=== PATIENT | male | born 1965 | race Caucasian/White ===

== ENCOUNTER 2020-10-23 19:00 | Observation (INO) | payer OTHER ==
[~2020-10-23] VITALS: Ht 180.3 cm; Wt 88.4 kg
--- NOTE | 2020-10-23 19:15 | NUR ---
PT WITH 20G IV THAT WAS PLACED PRIOR TO ARRIVAL. SITE DRSG CLEAN DRY AND INTACT. FLUSHES EASILY WITH GOOD BLOOD RETURN.
--- NOTE | 2020-10-23 19:15 | NUR ---
PT MOVED TO ROOM 9 FOR TRIAGE BY EMS.
[2020-10-23 19:52] LABS: HEMATOCRIT 37.4 % (39.0-50.0); HEMOGLOBIN 12.8 g/dl (14.0-18.0); IMMATURE GRANULOCYTES 0.2 % (0.0-5.0); MEAN CELL VOLUME 89.5 fL CALC (80.0-100.0); MEAN CORPUSCULAR HGB 30.6 pG CALC (26.0-32.0); MEAN CORPUSCULAR HGB CONC 34.2 g/dL CAL (32.0-36.0); NEUT# 4.48 thou/uL (1.82-7.42); RED BLOOD COUNT 4.18 mill/uL (4.70-6.10); RED CELL DISTRI WIDTH 12.3 % (11.5-15.5)
[2020-10-23 20:07] LABS: ALBUMIN 3.3 g/dL (3.2-5.0); ALKALINE PHOSPHATASE 43 u/l (38-126); ANION GAP 11 (6-22 (CALC)); BILIRUBIN, TOTAL 0.3 mg/dL (0.0-1.4); BUN 15 mg/dL (9-20); BUN/CREATININE RATIO 18 (12-20 (CALC)); CARBON DIOXIDE 25 mmol/l (22-30); CHLORIDE 107 mmol/l (95-108); CREATININE 0.9 mg/dL (0.7-1.3); GFR > 60 ML/MIN (>=60 (CALC)); GFR FOR AFR.AMER. > 60 ML/MIN (>=60 (CALC)); POTASSIUM 3.7 mmol/l (3.5-5.1); SGOT/AST 16 u/l (17-59); SODIUM 138 mmol/l (137-146); TOTAL PROTEIN 5.9 g/dL (6.3-8.2)
[2020-10-23 20:18] LABS: C-REACTIVE PROTEIN 18.1 mg/dL (0-0.9)
--- NOTE | 2020-10-23 21:01 | NUR ---
PATIENT AGRESS WITH PLAN FOR ADMISSION. OFFERS X2 AT BEDSIDE - OFFICER SAMANTHA EDWRADS OFFICER RAVIN
--- NOTE | 2020-10-23 21:20 | NUR ---
SGT. ALICIA AT BEDSIDE REMOVED FLEX CUFF PER REQUEST FOR SPLINT APPLICATION TO [facility].
--- NOTE | 2020-10-23 22:26 | NUR ---
REPORT GIVEN TO RAFAT Quiles RN - ERA CUFFED, SHACKLES ON FEET. OFFICERS X2 ACCOMPANYING PATIENT TO ROOM 277 WITH NURSE
--- NOTE | 2020-10-23 23:02 | NUR ---
PATIENT LEAVING DEPARTMENT VIA WHEELCHAIR ACCOMPANIED BY OFFICERS AND LELO DIGITAL MEASUREMENT ADVISOR.
[2020-10-23 23:05] VITALS: BP 122/82
--- NOTE | 2020-10-24 | NUR ---
PT MEDICATED FOR PAIN.
--- NOTE | 2020-10-24 01:50 | NUR ---
PT GIVEN TV DINNER AND BEVERAGE. CHANGED SOILED DRESSING FROM A SKINNED ABRASION ON RIGHT HAND.
--- NOTE | 2020-10-24 01:50 | NUR ---
PT RECEIVED FROM ED TO ROOM 277. ARRIVES VIA WC ACCOMPANIED BY LELO MADRID. PT AMBULATORY TO BED. GAIT STEADY. PT DENIES PAIN AT THIS TIME. ORIENTED TO UNIT, ROOM, CALL VERA, LIGHTS, TV. ICE WATER PROVIDED. PT FROM [facility] WITH 2 GUARDS PRESENT. PT SHACKLED TO THE BED . ALL SHACKLED LIMBS HAVE BEEN VERIFIED FOR PROPER CIRCULATION. CALL VERA WITHIN REACH. AGREES TO CALL PRN.
[2020-10-24 04:00] VITALS: BP 120/71
--- NOTE | 2020-10-24 04:23 | NUR ---
PT RESTING IN BED, WITH 2 GUARDS AT BEDSIDE. SHACKLED TO THE BED. VERIFIED CIRCULATION. NO SIGNS OF DISTRESS NOTED, RESP EVEN AND UNLABORED. PT VOICES NO NEEDS OR COMPLAINTS AT THIS TIME. CALL LIGHT IN REACH, CONTINUE TO MONITOR.
[2020-10-24 05:08] LABS: ANION GAP 9 (6-22 (CALC)); BUN 14 mg/dL (9-20); BUN/CREATININE RATIO 17 (12-20 (CALC)); CARBON DIOXIDE 26 mmol/l (22-30); CHLORIDE 106 mmol/l (95-108); CREATININE 0.8 mg/dL (0.7-1.3); GFR > 60 ML/MIN (>=60 (CALC)); GFR FOR AFR.AMER. > 60 ML/MIN (>=60 (CALC)); HEMATOCRIT 35.5 % (39.0-50.0); HEMOGLOBIN 12.3 g/dl (14.0-18.0); MEAN CELL VOLUME 89.9 fL CALC (80.0-100.0); MEAN CORPUSCULAR HGB 31.1 pG CALC (26.0-32.0); MEAN CORPUSCULAR HGB CONC 34.6 g/dL CAL (32.0-36.0); POTASSIUM 3.8 mmol/l (3.5-5.1); RED BLOOD COUNT 3.95 mill/uL (4.70-6.10); RED CELL DISTRI WIDTH 12.5 % (11.5-15.5); SODIUM 136 mmol/l (137-146)
[2020-10-24 07:57] VITALS: BP 128/64
--- NOTE | 2020-10-24 08:24 | NUR ---
SHIFT CHANGE REPORT, PT AWAKE ALERT AND ORIENED IN [place] POSITION SHACKLED TO BED, CO RIGHT HAND ACHING PAIN @ 8/10, ARM SPLINTED AND FINGERS MILDLY SWOLEN, CALL VERA IN REACH AND BED LOCKED IN LOWEST POSITION. GUARDS X 2 IN ROOM.
--- NOTE | 2020-10-24 08:34 | NUR ---
S: LUCY MUNGUIA is a 55 M who presents with cellulitis of hand. He has an open fracture. All medications in patient's chart were reviewed. O: VS: BP 128/64 mmHg, P 74 bmp, RR 20 bpm, T 99.4 F W 88.4 kg, HT 71 in, Scr=0.8 mg/dL, CrCl= 120.2 ml/min A: Blood culture is pending. Preliminary Wound culture shows staphylcoccus aureus. P: Patient is on ceftazidime 2 g IV Q8H and vancomycin 1 g IV Q8H. Vancomycin ordered for pharmacy to dose. Start Vancomycin 1 g IV Q8H. Vancomycin trough is drawn before the 4th dose on 10/25/20 @ 0730. Vancomycin goal trough is between 10-15 mcg/ml. Pharmacy will follow and or advise on antibiotics use as needed.
--- NOTE | 2020-10-24 10:30 | NUR ---
CALLED DR. NORIEGA OFFICE REGARDING THIS PT SPOKE TO MARCELINO AND GIVEN ALL INFORMATION FOR CONSULTATION. STATED SHE WILL GIVE IT TO HIS RED CROSS WORKER RIGHT NOW AND HE WILL GIVE US A CALL BACK.
--- NOTE | 2020-10-24 10:36 | NUR ---
LEAVING UNIT AT THIS TIME TRANSPORTED VIA W/C TO PROCEDURE, GUARDS ACCOMPANING
--- NOTE | 2020-10-24 12:00 | NUR ---
PT C/O THROBBING PAIN TO RIGHT HAND AND REPORTED TORADOL NOT RELIEVING PAIN, MD NOTIFIED AND GAVE ORDERS, ALL NEEDS ADDRESSED, GUARDS IN ROOM AND PT SHACKLED TO BED.
[2020-10-24 14:28] VITALS: BP 120/72
--- NOTE | 2020-10-24 16:00 | NUR ---
RESTING IN BED, PAIN CONCERNS ADDRESSED AFTER NEW ORDER GIVEN BY
--- NOTE | 2020-10-24 17:12 | NUR ---
ERIC MADRID SPOKE TO SHANTA FROM [facility] AT [phone] AND SHE GAVE ROOM NUMBER ORTHO 7A ROOM 746.
--- NOTE | 2020-10-24 17:24 | NUR ---
CALLED SHANTA BACK AT [phone] AT [facility] TO FIND OUT FOR THIS WRITERS RECORDS WHO THE ACCEPTED PHYSICIAN IS AND THERE NAMES ARE IS THE HOSPITAL AND THE ORTHO SURGEON IS .
--- NOTE | 2020-10-24 18:55 | NUR ---
REPORT GIVEN TO MARVA NEGRETE) AT [facility]
--- NOTE | 2020-10-24 19:52 | NUR ---
Discharge instructions given. Patient verbalizes understanding of same. Discharged in stable condition via Wheelchair to [facility] with *Other. All belongings sent with pt.
--- NOTE | 2020-10-24 19:53 | NUR ---
PT LEFT THE FLOOR ESCORTED BY COMMUNITY ASSISTANT AND [facility] CORRECTIONAL OFFICERS VIA WHEELCHAIR, PT BEING TRANSFERRED TO [facility]. DISCHARGE PAPER SENT TO REGISTRATION. MEDICATED PT WITH TORADOL AND TYLENOL FOR PAIN RELIEF MPRIOR TO DISCHARGE.
--- NOTE | 2020-10-25 12:47 | NUR ---
WOUND CX RESULTS CALLED TO ROMAN @ [facility], PT WAS TRANSFERRED TO [facility] BUT HIS ACCT IS LOCKED SO I COULDNT FAX RESULTS THERE. I ALSO FAXED RESULTS TO [facility] [id number]
== END 2020-10-24 19:52 | disposition short-term general hospital (02) | DRG 563 ==
LOC: ED 19:00 → ED-I 20:43 → ED 21:02 → MS2 21:03
PROVIDERS: Family Medicine; Nurse Practitioner; ADMIT Internal Medicine; ATTEND Internal Medicine
DX: S62.390B Other fracture of second metacarpal bone, right hand, initial encounter for open fracture (principal); L03.113 Cellulitis of right upper limb; B95.61 Methicillin susceptible Staphylococcus aureus infection as the cause of diseases classified elsewhere; Y04.0XXA Assault by unarmed brawl or fight, initial encounter; Y92.149 Unspecified place in prison as the place of occurrence of the external cause
CPT/HCPCS: G0378; J0713; Q9967